=== PATIENT | female | born 1955 | race Caucasian/White ===

== ENCOUNTER 2023-03-24 11:20 | Inpatient (IN) | payer MEDICARE, MEDICAID ==
[~2023-03-24] VITALS: Ht 157.5 cm; Wt 63.1 kg
[2023-03-24 12:57] LABS: HEMOGLOBIN 11.2 g/dl (12.5-16.0); MEAN CELL VOLUME 102 fl (80.0-100.0); MEAN CORPUSCULAR HEMOGLOBIN 33 pg (27-31); MEAN CORPUSCULAR HGB CONC 33 g/dl (33.0-37.0); MEAN PLATELET VOLUME 10.1 fl (7.4-10.4); PLATELET COUNT 162 K/mm3 (130-400); REDCELL DISTRIBUTION WIDTH-CV 17.1 % (11.5-14.5)
[2023-03-24 13:02] LABS: HEMATOCRIT 34.5 % (37.0-47.0)
[2023-03-24 13:09] LABS: COLLECTION METHOD CLEAN CATCH
[2023-03-24 13:18] LABS: ALBUMIN 3.7 gm/dL (3.4-4.8); BILIRUBIN,TOTAL 1.7 mg/dL (0.2-1.2); CREATININE, serum 0.91 mg/dL (0.57-1.11); POTASSIUM 3.9 mmol/L (3.5-4.5); TOTAL PROTEIN 6.8 gm/dL (6.2-8.1)
[2023-03-24 13:24] LABS: TROPONIN-I 0.023 ng/mL (0.00-0.033)
[2023-03-24 13:43] LABS: BAND 6 % (0-10); LYMPHOCYTE 5 % (20.0-51.0); NEUTROPHILS 86 % (42.0-75.2); OVALOCYTES 1+
[2023-03-24 13:44] LABS: PLATELET ESTIMATE NORMAL (NORMAL)
[2023-03-24 13:44] LABS: URINE APPEARANCE Clear (CLEAR/HAZY); URINE COLOR Yellow (YELLOW)
[2023-03-24 13:48] LABS: URINE BLOOD Negative (NEGATIVE); URINE GLUCOSE Negative (NEGATIVE); URINE KETONE Negative (NEGATIVE); URINE NITRATE Negative (NEGATIVE); URINE PROTEIN(semi-quant) Negative (NEGATIVE)
[2023-03-24 13:50] LABS: SQUAMOUS EPITHELIAL 0-2 /hpf (0-10); URINE BACTERIA None Seen /hpf (NONE SEEN)
[2023-03-24] MEDS ORDERED: ATIVAN 1MG T1 MG/TAB PO (16:48)
[2023-03-24] MEDS ORDERED: CRESTOR40 MG PO (16:48)
[2023-03-24] MEDS ORDERED: ZETIA 10MG TAB10 MG PO (16:48)
[2023-03-24] MEDS ORDERED: ASPIRIN 81M81 MG/TA2 PO (16:49)
[2023-03-24] MEDS ORDERED: B-121000 MCG PO (16:49)
[2023-03-24] MEDS ORDERED: DESYREL DIVIDO150 M1 PO (16:49)
[2023-03-24] MEDS ORDERED: MELATONIN1 M6 PO (16:50)
[2023-03-24 17:00] VITALS: BP_SYST 139
[2023-03-24 17:18] VITALS: BP 139/78; PULSE 99; TEMP 97.4
--- NOTE | 2023-03-24 17:45 | NUR ---
Patient arrived to the unit aproximately 1730 hrs. Alert and oriented, VSS, states continues feeling with SOA. Right now eating dinner. Independent to ambulate. No oxygen needs. Assessment intake done.
[2023-03-24] MEDS ORDERED: MULTI VITAMINS1 TAB PO (17:51)
--- NOTE | 2023-03-24 18:46 | NUR ---
Patient continues with SOA specially with exertion. At RA, 96% sat. Report given to night RN.
[2023-03-24 19:02] VITALS: BP 111/75; PULSE 83; TEMP 97.9
[2023-03-24 21:00] VITALS: BP_SYST 111
[2023-03-24 23:33] VITALS: BP 100/51; PULSE 86; TEMP 98.5
[2023-03-25] VITALS (16 sets, daily range): BP systolic 94–119; BP diastolic 56–75; PULSE 70–96; TEMP 97.7–98.3
[2023-03-25 06:09] LABS: BASO % 0.1 % (0.0-2.0); EOS % 0.1 % (0.0-4.0); GRAN # 11.2 K/mm3 (1.4-6.5); GRAN % 84.9 % (42.2-75.2); HEMOGLOBIN 10.6 g/dl (12.5-16.0); LYMPH # 1.1 K/mm3 (1.2-3.4); LYMPH % 8.5 % (20.0-51.0); MEAN CELL VOLUME 100 fl (80.0-100.0); MEAN CORPUSCULAR HEMOGLOBIN 33 pg (27-31); MEAN CORPUSCULAR HGB CONC 33 g/dl (33.0-37.0); MEAN PLATELET VOLUME 10.2 fl (7.4-10.4); MONO # 0.8 K/mm3 (0.1-0.6); MONO % 5.8 % (1.7-9.3); PLATELET COUNT 156 K/mm3 (130-400); RED BLOOD COUNT 3.25 M/mm3 (4.10-5.30); REDCELL DISTRIBUTION WIDTH-CV 16.7 % (11.5-14.5)
[2023-03-25 06:13] LABS: HEMATOCRIT 32.5 % (37.0-47.0)
[2023-03-25 06:22] LABS: ALBUMIN 3.3 gm/dL (3.4-4.8); CALCIUM 8.7 mg/dL (8.4-10.2); CREATININE, serum 0.97 mg/dL (0.57-1.11); MAGNESIUM 1.8 mg/dL (1.6-2.6); PHOSPHOROUS 3.8 mg/dL (2.3-4.7)
--- NOTE | 2023-03-25 07:00 | NUR ---
Towards end of shift, Estela had diuresed 1100 ml of urine and jvd and bounding pedal pulses noted during night 03/24/23 23:00 had resolved. She c/o of new onset RLQ pain that this nurse passed on to dayshift. Vss are currently WNL and Estela continues to experience dyspnea on exertion when up to bathroom. Call light within reach.
--- NOTE | 2023-03-25 09:11 | NUR ---
SPOKE WITH CARDIOLOGY ABOUT GIVING PO MEDS THIS AM. OKAY TO GIVE AM MEDS WITH A SMALL SIP OF WATER. CONTINUE NPO OTHERWISE.
--- NOTE | 2023-03-25 09:14 | NUR ---
Initial visit; Patients thanked Thread Reeler for offering prayer and listening. Patient recently lost a friend whom she couldn't check on due to her health issues and she's feeling sad and alone. Thread Reeler reminded her of Lalo' arms around her and how much He loves her. She nor is anyone alone. She has a blessing in her son and she thanked Thread Reeler for being there with her. Thread Reeler wished her well.
--- NOTE | 2023-03-25 14:20 | NUR ---
ALEXIA CALLED FROM CRITICAL SERVICE WORKER THAT PATIENT HAD A RUN OF VTACH. NOTIFIED CARDIOLOGY. AWARE AND WILL FOLLOW UP WITH NURSING.
--- NOTE | 2023-03-25 23:34 | NUR ---
Patient assessed around 2049. Denies having pain and discomfort. Denies SOB and dyspnea at rest, but does report she has it with exertion. On room air. Given scheduled Lasix per orders. All questions anwered. In bed with call light within reach.
[2023-03-26] VITALS (13 sets, daily range): BP systolic 92–105; BP diastolic 50–67; PULSE 7–70; TEMP 97.8–98.5
--- NOTE | 2023-03-26 05:49 | NUR ---
Patient remains on room air. Denies having pain and discomfort. Voices no questions, needs, or concerns at this time. In bed with call light within reach.
[2023-03-26 05:59] LABS: BASO % 0.2 % (0.0-2.0); EOS # 0.1 K/mm3 (0.0-0.7); EOS % 0.5 % (0.0-4.0); GRAN # 10.1 K/mm3 (1.4-6.5); GRAN % 76.2 % (42.2-75.2); HEMOGLOBIN 11.5 g/dl (12.5-16.0); LYMPH # 2.4 K/mm3 (1.2-3.4); LYMPH % 18.2 % (20.0-51.0); MEAN CELL VOLUME 100 fl (80.0-100.0); MEAN CORPUSCULAR HEMOGLOBIN 33 pg (27-31); MEAN CORPUSCULAR HGB CONC 33 g/dl (33.0-37.0); MEAN PLATELET VOLUME 11.1 fl (7.4-10.4); MONO # 0.6 K/mm3 (0.1-0.6); MONO % 4.4 % (1.7-9.3); PLATELET COUNT 181 K/mm3 (130-400); REDCELL DISTRIBUTION WIDTH-CV 16.7 % (11.5-14.5)
[2023-03-26 06:11] LABS: BILIRUBIN,DIRECT 0.6 mg/dL (0.0-0.5)
[2023-03-26 06:23] LABS: ALBUMIN 3.5 gm/dL (3.4-4.8); BILIRUBIN,TOTAL 1.5 mg/dL (0.2-1.2); CALCIUM 8.8 mg/dL (8.4-10.2); CREATININE, serum 1.01 mg/dL (0.57-1.11); MAGNESIUM 1.6 mg/dL (1.6-2.6); PHOSPHOROUS 3.6 mg/dL (2.3-4.7); POTASSIUM 3.7 mmol/L (3.5-4.5); TOTAL PROTEIN 6.6 gm/dL (6.2-8.1)
--- NOTE | 2023-03-26 08:00 | NUR ---
Patient is resting in bed, alert and oriented x 4, states headache, tylenol provided. States SOB with activity. At RA. Assessment completed, meds provided, no further needs at this time. Call light within reach.
--- NOTE | 2023-03-26 14:47 | NUR ---
Technical System Analyst met with patient to discuss discharge planning. Patient lives alone in [place] and advised she moved to from [place] in October. Patient stated she is working with her insurance to get established with an in network PCP at this time. Patient is interested in finding a pharmacy in that can deliver medications to her home for free. SW provided information about [facility]. Patient reported use of a cane and that she is independent with ADLS. Patient does not have DPOA-HC and did not wish to create one at this time. Patient is not and has one child, Sol (ph#[phone]). Patient advised she plans to return home at time of discharge. Discharge Plan: Home
--- NOTE | 2023-03-26 16:26 | NUR ---
Reported by TYPING ELEMENT MACHINE OPERATOR HR <50, VS rechecked, WNL, hypotensive. Pt reports feeling SOB with exertion, no lightheadness, dizziness, or other discomfort.
--- NOTE | 2023-03-26 19:10 | NUR ---
Report given to JIMMY Tyler.
--- NOTE | 2023-03-26 21:14 | NUR ---
Patient asssessed around 1930. Denies having pain and discomfort. Reports continued SOB with exertion, denies at rest. Just had neb tx at time of assessment. LS expiratory wheezing. No cough. No edema. Voiced no questions, needs, or concerns at this time, just wanted medications to go to sleep, and given per orders as requested. In bed with call light within reach.
[2023-03-27 00:05] VITALS: BP_SYST 100
[2023-03-27 02:48] VITALS: BP 104/50; PULSE 117; PULSE 78; TEMP 98.7
[2023-03-27 04:27] VITALS: BP_SYST 104
--- NOTE | 2023-03-27 05:43 | NUR ---
Patient complained of abdominal cramping this morning. Given PRN Acetaminophen as requested. Voices no further questions, needs, or concerns at this time. In bed with call light within reach.
[2023-03-27 05:48] LABS: BASO % 0.2 % (0.0-2.0); EOS # 0.1 K/mm3 (0.0-0.7); GRAN # 7.4 K/mm3 (1.4-6.5); GRAN % 76.4 % (42.2-75.2); LYMPH # 1.7 K/mm3 (1.2-3.4); LYMPH % 17.7 % (20.0-51.0); MEAN CELL VOLUME 99 fl (80.0-100.0); MEAN CORPUSCULAR HEMOGLOBIN 32 pg (27-31); MEAN CORPUSCULAR HGB CONC 33 g/dl (33.0-37.0); MEAN PLATELET VOLUME 10.8 fl (7.4-10.4); MONO # 0.4 K/mm3 (0.1-0.6); MONO % 4.2 % (1.7-9.3); PLATELET COUNT 164 K/mm3 (130-400)
[2023-03-27 05:50] LABS: HEMATOCRIT 33.7 % (37.0-47.0)
[2023-03-27 06:11] LABS: ALBUMIN 3.3 gm/dL (3.4-4.8); CALCIUM 8.8 mg/dL (8.4-10.2); CREATININE, serum 0.89 mg/dL (0.57-1.11); PHOSPHOROUS 3.7 mg/dL (2.3-4.7); POTASSIUM 3.9 mmol/L (3.5-4.5)
[2023-03-27 07:14] VITALS: BP 96/62; PULSE 67; TEMP 97.5
--- NOTE | 2023-03-27 09:13 | NUR ---
Secure Software Assessor collaborated with Treatment Team to assess Patient for discharge readiness. Patient is assessed to be ready to discharge home today. Patient states that her son will provide transportation. Patient requests information to establish with a new PCP. SW provided PCP list of [place] [facility] as Patient states that she is willing to commute to [place] for care. Patient states that she will establish herself with a new PCP for follow-up care. SW discussed home health options with Patient. Patient states that she has no medical concerns when discharged home and is already working towards establishement of services through [facility] for additional support in the home.
--- NOTE | 2023-03-27 09:16 | NUR ---
Follow-up visit; Estela still seems a bith vague at times though today says she may be going home and thanked Home Health Aide for her visits. Home Health Aide offered a [facility] and wished Estela well.
[2023-03-27] MEDS ORDERED: PROAIR HFA0.09 MG/AC IH (09:18)
[2023-03-27 09:19] VITALS: BP_SYST 96
[2023-03-27] MEDS ORDERED: FLOVENT 110MCG7.9 GM IH (09:20)
--- NOTE | 2023-03-27 11:18 | NUR ---
ALL DISCHARGE INSTRUCTIONS REIVEWED WITH PT. ALL QUESTIONS AND CONCERNS ANSWERED AT THAT TIME. PT IS WANTING TO SET UP PRIMARY CARE IN [place], LIST OF PHYSICIANS PROVIDED. IV SITE WAS DISCONTINUED, CATHETER TIP INTACT. PT WAS INSTRUCTED TO CALL WHEN HER RIDE ARRIVED, PT LEFT WITHOUT INFORMING NURSING STAFF HER RIDE WAS HERE.
== END 2023-03-27 11:28 | disposition home or self-care (01) | DRG 293 ==
LOC: COL.ER 11:20 → MEDICAL 16:26
PROVIDERS: Physician Assistant; ADMIT Internal Medicine
DX: I11.0 Hypertensive heart disease with heart failure (principal); I25.10 Atherosclerotic heart disease of native coronary artery without angina pectoris; Z95.1 Presence of aortocoronary bypass graft; E03.9 Hypothyroidism, unspecified; F41.9 Anxiety disorder, unspecified; I50.9 Heart failure, unspecified; I95.9 Hypotension, unspecified; J43.9 Emphysema, unspecified; D64.9 Anemia, unspecified; E78.5 Hyperlipidemia, unspecified; I65.29 Occlusion and stenosis of unspecified carotid artery; Z87.891 Personal history of nicotine dependence
CPT/HCPCS: A9500-JZ; G0378; J1100; J1650; J1940; J2785; J3475; Q9967